=== PATIENT | female | born 1980 | race Caucasian/White ===

== ENCOUNTER 2016-07-04 10:39 | Emergency (ER) | payer OTHER ==
[~2016-07-04] VITALS: Ht 157.5 cm; Wt 60.0 kg
[2016-07-04 10:41] VITALS: BP 143/80; PULSE 106; RESP 20; TEMP 97.2; O2SAT 98
--- NOTE | 2016-07-04 11:26 | PD ---
Physical Exam Date Seen by Provider: Jul 04, 2016 Time Seen by Provider: 11:23 Narrative 36 year old female presents to the emergency department for evaluation of left sided chest pain that radiates to the left arm that started yesterday morning. She reports diaphoresis yesterday morning with 1 episode of vomiting. She states it is a heavy feeling. Patient denies any cardiac history. Vital signs reviewed. Patient awaiting bed placement. Data Data Last Documented VS Vital Signs Date Time Temp Pulse Resp B/P Pulse Ox O2 Delivery O2 Flow Rate FiO2 07/04/16 10:41 97.2 106 20 143/80 98 Room Air Orders Electrocardiogram (07/04/16 ) [facility] Supervised Visit with MANJU: Sonja Hanna Jul 04, 2016 11:26
[2016-07-04 11:51] VITALS: BP 123/87; PULSE 78; RESP 14; O2SAT 98
[2016-07-04] MEDS ORDERED: SODIUM CHLORIDE 0.9% FLUSH 10 ML FLUSH IVF PRN (12:00)
[2016-07-04 12:20] LABS: AUTOMATED NEUTROPHIL # 8.2 TH/MM3 (1.8-7.7); BASOPHIL % 0.3 % (0.0-2.0); EOSINOPHIL # 0.2 TH/MM3 (0-0.4); EOSINOPHIL % 1.8 % (0.0-4.0); HEMATOCRIT 41.6 % (35.0-46.0); HEMO FLAGS DIFF FINAL; LYMPH % 13.6 % (9.0-44.0); LYMPHOCYTE # 1.5 TH/MM3 (1.0-4.8); MEAN CELL VOLUME 90.2 FL (80.0-100.0); MEAN CORPUSCULAR HEMOGLOBIN 31.2 PG (27.0-34.0); MEAN CORPUSCULAR HGB CONC 34.6 % (32.0-36.0); MONO % 8.4 % (0.0-8.0); NEUT % 75.9 % (16.0-70.0); PLATELET COUNT 190 TH/MM3 (150-450); RED BLOOD COUNT 4.61 MIL/MM3 (4.00-5.30); RED CELL DISTRIBUTION WIDTH 18.4 % (11.6-17.2); WHITE BLOOD COUNT 10.7 TH/MM3 (4.0-11.0)
--- NOTE | 2016-07-04 12:28 | RADRPT ---
EXAM DATE/TIME: 07/04/2016 12:07 [place] COMPARISON: No previous studies available for comparison. INDICATIONS : Chest pain. MEDICAL HISTORY : None. SURGICAL HISTORY : None. ENCOUNTER: Initial ACUITY: 2 days PAIN SCORE: 3/10 LOCATION: Bilateral chest FINDINGS: A single view of the chest demonstrates the lungs to be symmetrically aerated without evidence of mas s, infiltrate or effusion. The cardiomediastinal contours are unremarkable. Osseous structures are intact. CONCLUSION: No acute disease. Hossein Mukherjee MD on July 04, 2016 at 12:26 Board Certified Radiologist. This report was verified electronically.
[2016-07-04 12:34] LABS: APTT (PATIENT) 29.1 SEC (24.3-30.1); INTERNATIONAL NORMALIZED RATIO 0.9 RATIO; PROTHROMBIN TIME - PATIENT 9.8 SEC (9.8-11.6)
[2016-07-04 12:38] LABS: MAGNESIUM 2.1 MG/DL (1.5-2.5); POTASSIUM 3.9 MEQ/L (3.5-5.1)
[2016-07-04 12:45] VITALS: BP_SYST 121; BP_SYST 125; BP_DIAS 74; BP_DIAS 78; PULSE 76; RESP 14; O2SAT 99
[2016-07-04 13:24] LABS: CREATINE KINASE 63 U/L (26-192)
[2016-07-04 13:24] LABS: AMPHETAMINE, URINE NEG (NEG); BARBITURATES, URINE NEG (NEG); COCAINE, URINE NEG (NEG)
[2016-07-04 14:00] VITALS: BP 121/77; PULSE 66; RESP 17; O2SAT 99
--- NOTE | 2016-07-04 14:14 | PD ---
HPI Chief Complaint: Chest Pain Time Seen by Provider: 11:57 Travel History International Travel<30 days: No Contact w/Intl Traveler<30days: No Traveled to known affect area: No History of Present Illness HPI 36-year-old female presents with left-sided chest pain that is been present over the past day or so. She states that it hurts to the touch. It hurts with movements. She states yesterday it made her throw up when it started to hurt. She states that right before she threw up she got sweaty. She denies any trauma , shortness of breath or other concurrent complaints. She denies other modifying factors. She denies prior cardiac history. 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 SKIN: Warm and dry. HEAD: Normocephalic and atraumatic. EYES: No injection or drainage. ENT: No nasal drainage noted. NECK: Supple, trachea midline. CARDIOVASCULAR: Regular rate and rhythm RESPIRATORY: Breath sounds equal bilaterally. No accessory muscle use. GASTROINTESTINAL: Abdomen soft, non-tender, nondistended. EXTREMITIES: No edema. NEUROLOGICAL: Awake and alert. Motor and sensory grossly within normal limits. Normal speech. Data Data Last Documented VS Vital Signs Date Time Temp Pulse Resp B/P Pulse Ox O2 Delivery O2 Flow Rate FiO2 07/04/16 14:00 66 17 121/77 99 Room Air 07/04/16 10:41 97.2 Orders Electrocardiogram (07/04/16 ) Basic Metabolic Panel (Bmp) (07/04/16 11:57) Complete Blood Count With Diff (07/04/16 11:57) D-Dimer (07/04/16 11:57) Magnesium (Mg) (07/04/16 11:57) Prothrombin Time / Inr (Pt) (07/04/16 11:57) Act Partial Throm Time (Ptt) (07/04/16 11:57) Chest, Single Ap (07/04/16 11:57) Ecg Monitoring (07/04/16 11:57) Bilateral Bp Monitoring (07/04/16 11:57) Iv Access Insert/Monitor (07/04/16 11:57) Oximetry (07/04/16 11:57) Sodium Chloride 0.9% Flush (Ns Flush) (07/04/16 12:00) Ed Urine Pregnancytest Poc (07/04/16 11:57) Ckmb (Isoenzyme) Profile (07/04/16 12:05) Troponin I (07/04/16 12:05) Drug Screen, Random Urine (07/04/16 12:05) Labs Laboratory Tests Test 07/04/16 07/04/16 12:06 12:42 White Blood Count 10.7 TH/MM3 Red Blood Count 4.61 MIL/MM3 Hemoglobin 14.4 GM/DL Hematocrit 41.6 % Mean Corpuscular Volume 90.2 FL Mean Corpuscular Hemoglobin 31.2 PG Mean Corpuscular Hemoglobin 34.6 % Concent Red Cell Distribution Width 18.4 % Platelet Count 190 TH/MM3 Mean Platelet Volume 8.7 FL Neutrophils (%) (Auto) 75.9 % Lymphocytes (%) (Auto) 13.6 % Monocytes (%) (Auto) 8.4 % Eosinophils (%) (Auto) 1.8 % Basophils (%) (Auto) 0.3 % Neutrophils # (Auto) 8.2 TH/MM3 Lymphocytes # (Auto) 1.5 TH/MM3 Monocytes # (Auto) 0.9 TH/MM3 Eosinophils # (Auto) 0.2 TH/MM3 Basophils # (Auto) 0.0 TH/MM3 CBC Comment DIFF FINAL Differential Comment Prothrombin Time 9.8 SEC Prothromb Time International 0.9 RATIO Ratio Activated Partial 29.1 SEC Thromboplast Time D-Dimer Quantitative (PE/DVT) 0.31 MG/L FEU Sodium Level 139 MEQ/L Potassium Level 3.9 MEQ/L Chloride Level 106 MEQ/L Carbon Dioxide Level 27.0 MEQ/L Anion Gap 6 MEQ/L Blood Urea Nitrogen 11 MG/DL Creatinine 0.58 MG/DL Estimat Glomerular Filtration 118 ML/MIN Rate Random Glucose 94 MG/DL Calcium Level 8.9 MG/DL Magnesium Level 2.1 MG/DL Total Creatine Kinase 63 U/L Troponin I LESS THAN 0.02 NG/ML Urine Opiates Screen NEG Urine Barbiturates Screen NEG Urine Amphetamines Screen NEG Urine Benzodiazepines Screen NEG Urine Cocaine Screen NEG Urine Cannabinoids Screen NEG MDM Medical Decision Making Medical Screen Exam Complete: Yes Emergency Medical Condition: Yes Medical Record Reviewed: Yes (past history confirmed) Interpretation(s) EKG shows NSR, no ST elevation or depression, and no arrhythmias. No significant T-wave inversions. CBC & BMP Diagram 07/04/16 12:06 Last 24 hours Impressions Chest X-Ray 07/04/16 1157 Signed Impressions: Service Date/Time: Thursday, July 04, 2016 12:07 - CONCLUSION: No acute disease. Hossein Mukherjee MD Differential Diagnosis PE, musculoskeletal, gastritis, atypical cardiac Narrative Course Will check blood work, chest x-ray, EKG and reevaluate ED workup no acute, offered chest pain center observation, wanting to go home with close outpatient cardiology follow-up for atypical cardiac presentation, Patient denies any new complaints and states that they are feeling better. Patient happy with care, all questions answered. Patient knows that follow up is incumbent on them and to return to the emergency room immediately if new or worsening symptoms develop. Patient given strict return precautions, vitals reviewed and are normal, agrees to further workup as an outpatient. Diagnosis Primary Impression: Chest pain Qualified Code: R07.9 - Chest pain, unspecified type Patient Instructions: General Instructions Additional Instructions: tylenol as needed, follow with primary thursday, return as needed, stop smoking cigarettes Med/Other Pt SpecificInfo: No Change to Meds Scripts No Active Prescriptions or Reported Meds Disposition: DISCHARGE HOME Condition: Stable Jacy Manzano MD Jul 04, 2016 14:13
--- NOTE | 2016-07-05 14:22 | EKG ---
Date Performed: 07/04/2016 Time Performed: 11:40:52 PTAGE: 36 years EKG: Sinus rhythm NORMAL ECG NO PREVIOUS TRACING DOCTOR: Grant Joshi Interpretating Date/Time 07/05/2016 14:22:24
== END 2016-07-04 15:19 | disposition home or self-care (01) ==
LOC: NEPC 10:39
DX: R07.9 Chest pain, unspecified (principal); F17.210 Nicotine dependence, cigarettes, uncomplicated
CPT/HCPCS: 71010; 80048; 80307; 82550; 83735; 84484; 84703; 85025; 85379; 85610; 85730; 93005